=== PATIENT | male | born 1955 | race Caucasian/White ===

== ENCOUNTER 2017-05-30 16:21 | Inpatient (IN) | payer BC ==
[~2017-05-30] VITALS: Ht 188 cm; Wt 139.3 kg
[~2017-05-30 16:21] MED LIST: AMLO10TA2 PO; ASPI-482 PO; BENA10TA2 PO; CHOL10002 PO; KRIL500C PO; METF500T4 PO; MULT-208 PO
[2017-05-30] MEDS ORDERED: NITROGLYCERIN SUBLINGUAL 0.4 MG BOTTLE OF 25. SL PRN ×2 (16:45→19:45)
[2017-05-30 16:46] LABS: BASO # 0.1 x10^3/uL (0.0-0.2); BASO % 1 % (0-3); EOS % 0 % (0-3); HEMATOCRIT 42.1 % (39.0-53.0); HEMOGLOBIN 14.2 g/dL (13.0-17.5); LYMPH % 23 % (24-48); MEAN CORPUSCULAR HEMOGLOBIN 28 pg (25-35); MEAN CORPUSCULAR HGB CONC 34 g/dL (31-37); MEAN CORPUSCULAR VOLUME 84 fL (79-100); MONO % 22 % (0-9); NEUT % 55 % (31-73); PLATELET COUNT 116 x10^3/uL (140-400); RED BLOOD COUNT 5.02 x10^6/uL (4.30-5.70); RED CELL DISTRIBUTION WIDTH 16.4 % (11.5-14.5); WHITE BLOOD COUNT 8.8 x10^3/uL (4.0-11.0)
[2017-05-30 17:06] LABS: CALCIUM 9.3 mg/dL (8.5-10.1); CREATININE 1.4 mg/dL (0.7-1.3); GFR 51.9
[2017-05-30 17:11] LABS: ALBUMIN 4.3 g/dL (3.4-5.0); ALBUMIN/GLOBULIN RATIO 1.3 (1.0-1.7); TOTAL BILIRUBIN 0.6 mg/dL (0.2-1.0); TOTAL PROTEIN 7.7 g/dL (6.4-8.2)
--- NOTE | 2017-05-30 17:14 | ED.ADGEN ---
Past Medical History Past Medical History: Depression, Diabetes-Type II, High Cholesterol, Hypertension Past Surgical History: Tonsillectomy Alcohol Use: None Drug Use: None Adult General Chief Complaint Chief Complaint: CHEST PAIN HPI HPI Patient is a 61 year old man, history of type 2 diabetes mellitus, hypercholesterolemia, hypertension, depression, who presents to the emergency department with a complaint of left chest pain that began around 9:00 this morning. Patient states he had a sharp episode of left upper chest pain, with tingling in both arms, that lasted for about 5 minutes. He states that that chart chest pain did resolve, but he does have some chest tightness that is intermittent since that time. He denies any shortness of breath, any nausea or vomiting, states he's been belching during the day. He states the pain does not really radiate, likely feel some tightness in his left neck. States currently is about a 110 and more tightness than a discomfort. He denies any similar symptoms previously, any injuries, states that he has been experiencing some tightness in his left lower extremity, behind his knee and in his calf, states he plays basket ball several times a week, denies any discrete injuries. No history of DVT or PE, no recent travel or surgery, states he's been compliant with all his medications, he saw his primary care provider about a week ago in his he will A1c was 6.3 at that time, he does not check his sugars regularly although it is recommended. He states he has been compliant with all medications , he takes a baby aspirin daily which she did take this morning. No other medications prior to coming to the ED. He does not have a battery stacker, states he had a cardiac evaluation performed about 2 years ago which showed "some plaque", he has not had a previous catheterization. Review of Systems Review of Systems Constitutional: Denies fever or chills. [] Eyes: Denies change in visual acuity. [] HENT: Denies nasal congestion or sore throat. [] Respiratory: Denies cough or shortness of breath. [] Cardiovascular: Denies chest pain or edema. [] GI: Denies abdominal pain, nausea, vomiting, bloody stools or diarrhea. [] : Denies dysuria. [] Musculoskeletal: Denies back pain or joint pain. [] Integument: Denies rash. [] Neurologic: Denies headache, focal weakness or sensory changes. [] Endocrine: Denies polyuria or polydipsia. [] Lymphatic: Denies swollen glands. [] Psychiatric: Denies depression or anxiety. [] Current Medications Current Medications Current Medications Medications (Trade) Dose Ordered Sig/Efren Start Time Stop Time Status Last Admin Dose Admin Aspirin (Children'S Aspirin) 324 mg 1X ONCE 05/30/17 17:15 05/30/17 17:16 DC 05/30/17 17:35 324 MG Nitroglycerin (Nitrostat) 0.4 mg PRN Q5MIN PRN 05/30/17 16:45 05/31/17 16:44 Allergies Allergies Allergies Coded Allergies Type Severity Reaction Last Updated Verified Penicillins Allergy Intermediate 05/30/17 Yes Physical Exam Physical Exam Constitutional: Well developed, well nourished, no acute distress, non-toxic appearance. [] HENT: Normocephalic, atraumatic, bilateral external ears normal, oropharynx moist, no oral exudates, nose normal. [] Eyes: PERRLA, EOMI, conjunctiva normal, no discharge. [] Neck: Normal range of motion, no tenderness, supple, no stridor. [] Cardiovascular:Heart rate regular rhythm, no murmur, S1, S2, rubs or gallops. Patient with mild anterior chest wall tenderness, no crepitus, no lesions identified. [] Lungs & Thorax: Bilateral breath sounds clear to auscultation, no wheezing, rhonchi, rales. No chest wall crepitus. [] Abdomen: Bowel sounds normal, soft, obese, no rebound, rigidity, no guarding, no tenderness, no masses, no pulsatile masses. [] Skin: Warm, dry, no erythema, no rash. [] Back: No tenderness, no CVA tenderness. [] Extremities: Patient with tenderness palpation in the popliteal fossa and in the calf on the left, no cord noted, no lesions or abnormalities noted superficially, right lower extremity examination is unremarkable, patient does have some darkening of the skin which is chronic, states he previously had cellulitis several years ago,, no cyanosis, no clubbing, ROM intact, no edema. [ ] Neurologic: Alert and oriented X 3, normal motor function, normal sensory function, no focal deficits noted. [] Psychologic: Affect normal, judgement normal, mood normal. [] Current Patient Data Vital Signs Vital Signs Date Time Temp Pulse Resp B/P (MAP) Pulse Ox O2 Delivery O2 Flow Rate FiO2 05/30/17 18:00 74 16 119/63 (81) 96 Room Air 05/30/17 16:25 97.4 97.4 Lab Values Laboratory Tests Test 05/30/17 16:30 White Blood Count 8.8 x10^3/uL (4.0-11.0) Red Blood Count 5.02 x10^6/uL (4.30-5.70) Hemoglobin 14.2 g/dL (13.0-17.5) Hematocrit 42.1 % (39.0-53.0) Mean Corpuscular Volume 84 fL (79-100) Mean Corpuscular Hemoglobin 28 pg (25-35) Mean Corpuscular Hemoglobin Concent 34 g/dL (31-37) Red Cell Distribution Width 16.4 % (11.5-14.5) H Platelet Count 116 x10^3/uL (140-400) L Neutrophils (%) (Auto) 55 % (31-73) Lymphocytes (%) (Auto) 23 % (24-48) L Monocytes (%) (Auto) 22 % (0-9) H Eosinophils (%) (Auto) 0 % (0-3) Basophils (%) (Auto) 1 % (0-3) Neutrophils # (Auto) 4.8 x10^3uL (1.8-7.7) Lymphocytes # (Auto) 2.0 x10^3/uL (1.0-4.8) Monocytes # (Auto) 1.9 x10^3/uL (0.0-1.1) H Eosinophils # (Auto) 0.0 x10^3/uL (0.0-0.7) Basophils # (Auto) 0.1 x10^3/uL (0.0-0.2) Segmented Neutrophils % 48 % (35-66) Band Neutrophils % 9 % (0-9) Lymphocytes % 21 % (24-48) L Monocytes % 18 % (0-10) H Basophils % 2 % (0-3) Metamyelocytes % 2 % (0-0) H Platelet Estimate Decreased (ADEQUATE) Sodium Level 137 mmol/L (136-145) Potassium Level 3.0 mmol/L (3.5-5.1) L Chloride Level 97 mmol/L (98-107) L Carbon Dioxide Level 30 mmol/L (21-32) Anion Gap 10 (6-14) Blood Urea Nitrogen 18 mg/dL (8-26) Creatinine 1.4 mg/dL (0.7-1.3) H Estimated GFR (Cockcroft-Gault) 51.9 BUN/Creatinine Ratio 13 (6-20) Glucose Level 158 mg/dL (70-99) H Calcium Level 9.3 mg/dL (8.5-10.1) Magnesium Level 2.0 mg/dL (1.8-2.4) Total Bilirubin 0.6 mg/dL (0.2-1.0) Aspartate Amino Transferase (AST) 26 U/L (15-37) Alanine Aminotransferase (ALT) 36 U/L (16-63) Alkaline Phosphatase 74 U/L (46-116) Troponin I Quantitative < 0.017 ng/mL (0.000-0.055) FF-Vks-M-Type Natriuretic Peptide 18 pg/mL (0-124) Total Protein 7.7 g/dL (6.4-8.2) Albumin 4.3 g/dL (3.4-5.0) Albumin/Globulin Ratio 1.3 (1.0-1.7) Lipase 208 U/L (73-393) Laboratory Tests 05/30/17 16:30 Laboratory Tests 05/30/17 16:30 EKG EKG EC: Sinus rhythm, 72 beats/minute, left axis deviation, QTC of 411, TX of 180, QRS of 94, no ST elevations or depressions, abnormal ECG, does not meet STEMI criteria. No prior for comparison. As interpreted by me.[] Radiology/Procedures Radiology/Procedures [][facility] [address] [place] [address] IMAGING REPORT Signed PATIENT: PEPPER MCKOY ACCOUNT: [id number] : 1955 LOCATION: ER AGE: 61 SEX: M EXAM STATUS: PRE ER ORD. PHYSICIAN: ALVAREZ PAREKH DO REASON: swelling/pain/TTP PROCEDURE: VENOUS LOWER EXTREMITY LEFT Left lower extremity venous doppler ultrasound Indication: Pain and swelling. . Technique: Color Doppler, grayscale, duplex, spectral waveform analysis is used to evaluate the lower extremity deep venous system, including the common femoral vein, superficial femoral vein, popliteal vein, tibioperoneal trunk and calf veins. Findings: No evidence of deep venous thrombosis. Normal response to augmentation, normal compressibility and normal phasicity is demonstrated. Impression: Negative for deep venous thrombosis Electronically signed by: Amado Warner MD (05/30/2017 5:28 PM) [facility] DICTATED and SIGNED BY: AMADO WARNER MD DATE: 05/30/17 1723 CC: ALVAREZ PAREKH DO; Elvin LALA MD ~ Course & Med Decision Making Course & Med Decision Making Pertinent Labs and Imaging studies reviewed. (See chart for details) Patient is experiencing intermittent "chest tightness", after episode of chest pain associated with belching, and tingling of both arms that occurred this morning. ECG reveals left axis deviation, no other concerning findings identified, and troponin is negative. However, based on patient's report of concern for atypical presentation of ACS, and lack of recent evaluation, he is agreeable for evaluation. Anxiety cardiology consultation. Findings as above were discussed with the patient's primary care provider, Dr. Proctor, 70s service as a full admission to the medical telemetry floor, with consultation placed for Dr. Garrison of cardiology, who did evaluate the patient in the emergency department. Patient remained stable and comfortable during his ED course, transfer to the floor without issue with bridge orders entered per discussion. Dragon Disclaimer Dragon Disclaimer This electronic medical record was generated, in whole or in part, using a voice recognition dictation system. Departure Impression: Primary Impression: Chest pain Disposition: ADMITTED INPATIENT Admitting Physician: Madisyn Proctor Condition: IMPROVED ALVAREZ PAREKH DO May 30, 2017 17:14
[2017-05-30] MEDS ORDERED: ASPIRIN CHEWABLE 81 MG TABLET. PO ONE (17:15)
[2017-05-30 17:22] LABS: % BASOS 2 % (0-3)
[2017-05-30 17:24] LABS: PLT ESTIMATE DECREASED (ADEQUATE)
--- NOTE | 2017-05-30 17:32 | RAD ---
Left lower extremity venous doppler ultrasound Indication: Pain and swelling. . Technique: Color Doppler, grayscale, duplex, spectral waveform analysis is used to evaluate the lower extremity deep venous system, including the common femoral vein, superficial femoral vein, popliteal vein, tibioperoneal trunk and calf veins. Findings: No evidence of deep venous thrombosis. Normal response to augmentation, normal compressibility and normal phasicity is demonstrated. Impression: Negative for deep venous thrombosis Electronically signed by: Amado Warner MD (05/30/2017 5:28 PM) [facility]
--- NOTE | 2017-05-30 17:59 | EKG ---
[facility] [address] [place] [address] Test Date: 2017-05-30 Test Time: 16:25:59 Pat Name: PEPPER MCKOY Department: Room: Gender: M Shorthand Reporter: : 1955 Requested By: ALVAREZ PAREKH Order Number: [id number] Reading MD: Measurements Intervals [place] Rate: 72 P: 38 MD: 180 QRS: -18 QRSD: 94 T: 54 QT: 374 QTc: 411 Interpretive Statements SINUS RHYTHM LEFTWARD AXIS OTHERWISE NORMAL ECG RI6.01 No previous ECG available for comparison
[2017-05-30] MEDS ORDERED: ACETAMINOPHEN 325 MG TABLET. PO PRN (19:45)
[2017-05-30] MEDS ORDERED: ONDANSETRON PF 4 MG/2 ML VIAL. IV PRN (19:45)
[2017-05-30] MEDS ORDERED: DEXTROSE 50% 25 GM / 50ML DISP.SYRIN. IV PRN (19:45)
[2017-05-30] MEDS ORDERED: POTASSIUM CL 40MEQ IN 0.9%NACL 1,000 ML IV ONE (20:30)
[2017-05-30] MEDS ORDERED: POTASSIUM CHLORIDE 20 MEQ/15 ML ORAL LIQUID. PO ONE (20:30)
[2017-05-30] MEDS ORDERED: ATOR20TA58 PO (20:55)
[2017-05-30] MEDS ORDERED: CHLO25TA PO (20:55)
[2017-05-30] MEDS ORDERED: EMPA1TAB3 PO (20:55)
[2017-05-30] MEDS ORDERED: CITA10TA4 PO (20:55)
[2017-05-30] MEDS ORDERED: HYDR25TA PO (20:55)
[2017-05-30] MEDS ORDERED: MONT10TA9 PO (20:55)
[2017-05-30] MEDS ORDERED: GLIM4TAB2 PO (20:55)
[2017-05-30] MEDS ORDERED: TRAZ50TA15 PO (20:55)
[2017-05-30] MEDS ORDERED: LEVO175T5 PO (20:55)
[2017-05-30] MEDS ORDERED: traZODone 50 MG TABLET. PO SCH (22:00)
[2017-05-30] MEDS ORDERED: hydrOXYzine PAMOATE 25 MG CAPSULE PO SCH (22:15)
[2017-05-30] MEDS ORDERED: ATORVASTATIN CALCIUM 20 MG TABLET PO SCH (22:15)
[2017-05-30 23:00] VITALS: BP 115/68
[2017-05-31 03:00] VITALS: BP 122/88
[2017-05-31 05:12] LABS: BASO % 0 % (0-3); EOS % 0 % (0-3); HEMATOCRIT 41.9 % (39.0-53.0); HEMOGLOBIN 13.9 g/dL (13.0-17.5); LYMPH % 26 % (24-48); MEAN CORPUSCULAR HEMOGLOBIN 28 pg (25-35); MEAN CORPUSCULAR HGB CONC 33 g/dL (31-37); MEAN CORPUSCULAR VOLUME 85 fL (79-100); MONO % 24 % (0-9); NEUT % 50 % (31-73); PLATELET COUNT 107 x10^3/uL (140-400); RED BLOOD COUNT 4.91 x10^6/uL (4.30-5.70); RED CELL DISTRIBUTION WIDTH 16.3 % (11.5-14.5); WHITE BLOOD COUNT 7.8 x10^3/uL (4.0-11.0)
[2017-05-31] MEDS ORDERED: LEVOTHYROXINE 175 MCG TABLET PO SCH (06:00)
[2017-05-31 06:15] LABS: CALCIUM 8.8 mg/dL (8.5-10.1); CREATININE 1.2 mg/dL (0.7-1.3); POTASSIUM 3.5 mmol/L (3.5-5.1)
[2017-05-31 07:55] VITALS: BP 124/73
[2017-05-31] MEDS: INSULIN ASPART 300 UNITS/3 ML INSULN.PEN SQ SCH ×3 (08:00→17:00)
[2017-05-31] MEDS ORDERED: GLIMEPIRIDE 2 MG TABLET. PO SCH (08:00)
--- NOTE | 2017-05-31 08:12 | RAD ---
Indication: Chest pain. Time of exam 1724 hours. Correlation is made with prior study from 07/16/2013. The heart size is stable. Lungs are clear. The pulmonary vascularity is normal. No infiltrate, effusion or pneumothorax is seen. Impression: No acute cardiopulmonary process is detected.
--- NOTE | 2017-05-31 08:51 | PDOC ---
Provider Note Provider Note Pt seen and examined, appears to have musculoskeletal cause of chest pain, enzymes negative x 2, K+ was low and has been replaced. Dr. Garrison consulted , stress MPI to be done, if negative anticipate discharge. Risk factors of diabetes, hyperlipidemia and male gender but he is physically active and plays basketball routinely. Full report to be dictated Elvin LALA MD May 31, 2017 08:51
[2017-05-31] MEDS ORDERED: LINAGLIPTIN 5 MG TABLET PO SCH (09:00)
[2017-05-31] MEDS ORDERED: NON FORMULARY ITEM (Empagliflozin/Linagliptin (Glyxambi 10 mg-5 mg Tablet) 1 EACH) PO SCH (09:00)
[2017-05-31] MEDS ORDERED: MULTIVITAMIN with MINERAL TABLET. PO SCH (09:00)
[2017-05-31] MEDS ORDERED: LISINOPRIL 20 MG TABLET PO SCH (09:00)
[2017-05-31] MEDS ORDERED: ASPIRIN ENTERIC COATED 81 MG TABLET.DR. PO SCH (09:00)
[2017-05-31] MEDS ORDERED: amLODIPine BESYLATE 10 MG TABLET PO SCH (09:00)
[2017-05-31] MEDS ORDERED: CHLORTHALIDONE 25 MG TABLET. PO SCH (09:00)
[2017-05-31] MEDS ORDERED: CITALOPRAM 10 MG TABLET. PO SCH (09:00)
--- NOTE | 2017-05-31 11:02 | PDOC2 ---
CONSULT Date of Consult Date of Consult DATE: 05/31/17 TIME: 10:53 Reason for Consult Reason for Consult: Chest Pain Referring Physician Referring Physician: Dr. Enma Kothari MD Identification/Chief Complaint Chief Complaint L Chest pain/tightness Problems: Source Source: Chart review, Patient History of Present Illness Reason for Visit: Mr. Goodwin is a 61 yo male with a medical Hx significant for HTN, CAD, T2DM, and hypercholesterolemia. Patient reports that yesterday morning he started experiencing a sharp pain in his L upper chest, along with tingling down both of his arms. The episode lasted ~5 minutes in total and then resolved on its own. Reports some intermittent tightness since that incident. Denies any SOA, dizziness, weakness, or N/V with this episode. He was concerned about the tightness and drove himself to the ED after work. Denies any history of injury to his chest/neck/arms. Only other symptoms patient reported were frequent belching and leg pain. Patient denies any recent hx of similar episode, however he did state that he had chest tightness a couple of years ago. At that time, he underwent a ECG and stress test which were "normal" per patient. 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 No hx of cardiac catheterizations or other cardiac procedures. Patient takes a baby aspirin daily. In the ED, an ECG was performed and only remarkable for some L axis deviation. No ST elevation or depressions noted. Initial and repeat troponin were both found to be negative. LE US dopplers negative. Today, patient is doing well. He reports minimal L chest "discomfort" that is a 1/10 on a pain scale. Past Medical History Cardiovascular: CAD, HTN, Hyperlipidemia Pulmonary: Other CENTRAL NERVOUS SYSTEM: Other GI: Peptic Ulcer disease Heme/Onc: No pertinent hx Hepatobiliary: No pertinent hx Psych: No pertinent hx Musculoskeletal: Other Rheumatologic: No pertinent hx Infectious disease: No pertinent hx Renal/: No pertinent hx Endocrine: Diabetes, Hypothyroidism Past Surgical History Past Surgical History: Tonsillectomy Family History Family History: Diabetes, Heart Disease, Hypertension, Other Social History ALCOHOL: rare Drugs: None Current Medications Current Medications Current Medications Nitroglycerin (Nitrostat) 0.4 mg PRN Q5MIN PRN SL CP RATING > 1/10; Start 12/4 /17 at 16:45; Stop 05/31/17 at 16:44 Aspirin (Children'S Aspirin) 324 mg 1X ONCE PO Last administered on 05/30/17 17:35; Start 05/30/17 at 17:15; Stop 05/30/17 at 17:16; Status DC Ondansetron HCl (Zofran) 4 mg PRN Q8HRS PRN IV NAUSEA/VOMITING; Start 05/30/17 at 19:45; Stop 05/31/17 at 19:44 Acetaminophen (Tylenol) 650 mg PRN Q4HRS PRN PO FEVER; Start 05/30/17 at 19:45 ; Stop 05/31/17 at 19:44 Nitroglycerin (Nitrostat) 0.4 mg PRN Q5MIN PRN SL CHEST PAIN; Start 05/30/17 at 19:45; Stop 05/31/17 at 19:44 Insulin Aspart (NovoLOG) 0-5 UNITS TIDWMEALS SQ ; Start 05/31/17 at 08:00 Dextrose (Dextrose 50%-Water Syringe) 12.5 gm PRN Q15MIN PRN IV SEE COMMENTS; Start 05/30/17 at 19:45 Potassium Chloride (KCl Oral Soln) 40 meq 1X ONCE PO Last administered on 05/30 22:11; Start 05/30/17 at 20:30; Stop 05/30/17 at 20:31; Status DC Potassium Chloride/Sodium Chloride 1,000 ml @ 75 mls/hr 1X ONCE IV Last administered on 05/30/17 22:08; Start 05/30/17 at 20:30; Stop 05/31/17 at 09:49 ; Status DC Amlodipine Besylate (Norvasc) 10 mg DAILY PO ; Start 05/31/17 at 09:00 Aspirin (Ecotrin) 81 mg DAILY PO ; Start 05/31/17 at 09:00 Atorvastatin Calcium (Lipitor) 20 mg HS PO Last administered on 05/30/17 22:27 ; Start 05/30/17 at 22:15 Chlorthalidone (Thalitone) 25 mg DAILY PO ; Start 05/31/17 at 09:00 Citalopram Hydrobromide (CeleXA) 10 mg DAILY PO ; Start 05/31/17 at 09:00 Levothyroxine Sodium (Synthroid) 175 mcg DAILY06 PO Last administered on 05:47; Start 05/31/17 at 06:00 Metformin HCl (Glucophage) 1,000 mg BIDWMEALS PO ; Start 05/31/17 at 08:00 Montelukast Sodium (Singulair) 10 mg HS PO ; Start 05/31/17 at 21:00 Trazodone HCl (Desyrel) 50 mg PRN QHS PO ; Start 05/30/17 at 22:00 Lisinopril (Prinivil) 20 mg DAILY PO ; Start 05/31/17 at 09:00 Non-Formulary Medication 1 each DAILY PO ; Start 05/31/17 at 09:00; Stop at 09:00; Status DC Glimepiride (Amaryl) 4 mg DAILYWBKFT PO ; Start 05/31/17 at 08:00 Hydroxyzine Pamoate (Vistaril) 25 mg HS PO Last administered on 05/30/17 22:27 ; Start 05/30/17 at 22:15 Multivitamins (Thera M Plus) 1 tab DAILY PO ; Start 05/31/17 at 09:00 Linagliptin (Tradjenta) 5 mg DAILY PO ; Start 05/31/17 at 09:00 Active Scripts Active Reported Hydroxyzine Hcl 25 Mg Tablet 1-2 Tab PO PRN QHS Trazodone Hcl 50 Mg Tablet 1 Tab PO PRN QHS Glimepiride 4 Mg Tablet 1 Tab PO DAILY Atorvastatin Calcium 20 Mg Tablet 1 Tab PO HS Chlorthalidone 25 Mg Tablet 1 Tab PO DAILY Glyxambi 10 mg-5 mg Tablet (Empagliflozin/Linagliptin) 1 Each Tablet 1 Each PO DAILY Montelukast Sodium Tablet (Montelukast Sodium) 10 Mg Tablet 1 Tab PO DAILY Citalopram Hbr (Citalopram Hydrobromide) 10 Mg Tablet 1 Tab PO DAILY Levothyroxine Sodium 175 Mcg Tablet 1 Tab PO DAILY Multi-Day Vitamins (Multivitamin) 1 Each Tablet 1 Each PO DAILY Aspir 81 (Aspirin) 81 Mg Tablet.dr 81 Mg PO DAILY Benazepril Hcl 10 Mg Tablet 20 Mg PO DAILY Amlodipine Besylate 10 Mg Tablet 10 Mg PO DAILY Metformin Hcl 500 Mg Tablet 1,000 Mg PO BID Allergies Allergies: Coded Allergies: Penicillins (Verified Allergy, Intermediate, 12/4/17) ROS Cardiovascular: yes Other (1/10 L chest discomfort) Physical Exam General: Alert, Oriented X3, Cooperative, No acute distress HEENT: PERRLA Lungs: Clear to auscultation, Normal air movement Heart: Regular rate, Normal S1, Normal S2, No murmurs Extremities: No clubbing, No cyanosis, No edema Neuro: Normal speech Psych/Mental Status: Mental status NL, Mood NL Vitals VITALS Vital Signs Date Time Temp Pulse Resp B/P (MAP) Pulse Ox O2 Delivery O2 Flow Rate FiO2 05/31/17 08:00 Room Air 05/31/17 07:55 96.4 64 18 124/73 (90) 96 96.4 05/31/17 03:00 2.0 Labs Labs Laboratory Tests Test 05/30/17 16:30 05/30/17 21:36 05/30/17 21:50 05/31/17 04:15 White Blood Count 8.8 x10^3/uL (4.0-11.0) 7.8 x10^3/uL (4.0-11.0) Red Blood Count 5.02 x10^6/uL (4.30-5.70) 4.91 x10^6/uL (4.30-5.70) Hemoglobin 14.2 g/dL (13.0-17.5) 13.9 g/dL (13.0-17.5) Hematocrit 42.1 % (39.0-53.0) 41.9 % (39.0-53.0) Mean Corpuscular Volume 84 fL (79-100) 85 fL (79-100) Mean Corpuscular Hemoglobin 28 pg (25-35) 28 pg (25-35) Mean Corpuscular Hemoglobin Concent 34 g/dL (31-37) 33 g/dL (31-37) Red Cell Distribution Width 16.4 % (11.5-14.5) 16.3 % (11.5-14.5) Platelet Count 116 x10^3/uL (140-400) 107 x10^3/uL (140-400) Neutrophils (%) (Auto) 55 % (31-73) 50 % (31-73) Lymphocytes (%) (Auto) 23 % (24-48) 26 % (24-48) Monocytes (%) (Auto) 22 % (0-9) 24 % (0-9) Eosinophils (%) (Auto) 0 % (0-3) 0 % (0-3) Basophils (%) (Auto) 1 % (0-3) 0 % (0-3) Neutrophils # (Auto) 4.8 x10^3uL (1.8-7.7) 3.9 x10^3uL (1.8-7.7) Lymphocytes # (Auto) 2.0 x10^3/uL (1.0-4.8) 2.0 x10^3/uL (1.0-4.8) Monocytes # (Auto) 1.9 x10^3/uL (0.0-1.1) 1.8 x10^3/uL (0.0-1.1) Eosinophils # (Auto) 0.0 x10^3/uL (0.0-0.7) 0.0 x10^3/uL (0.0-0.7) Basophils # (Auto) 0.1 x10^3/uL (0.0-0.2) 0.0 x10^3/uL (0.0-0.2) Segmented Neutrophils % 48 % (35-66) Band Neutrophils % 9 % (0-9) Lymphocytes % 21 % (24-48) Monocytes % 18 % (0-10) Basophils % 2 % (0-3) Metamyelocytes % 2 % (0-0) Platelet Estimate Decreased (ADEQUATE) Sodium Level 137 mmol/L (136-145) 140 mmol/L (136-145) Potassium Level 3.0 mmol/L (3.5-5.1) 3.5 mmol/L (3.5-5.1) Chloride Level 97 mmol/L (98-107) 102 mmol/L (98-107) Carbon Dioxide Level 30 mmol/L (21-32) 28 mmol/L (21-32) Anion Gap 10 (6-14) 10 (6-14) Blood Urea Nitrogen 18 mg/dL (8-26) 16 mg/dL (8-26) Creatinine 1.4 mg/dL (0.7-1.3) 1.2 mg/dL (0.7-1.3) Estimated GFR (Cockcroft-Gault) 51.9 62.0 BUN/Creatinine Ratio 13 (6-20) Glucose Level 158 mg/dL (70-99) 128 mg/dL (70-99) Calcium Level 9.3 mg/dL (8.5-10.1) 8.8 mg/dL (8.5-10.1) Magnesium Level 2.0 mg/dL (1.8-2.4) Total Bilirubin 0.6 mg/dL (0.2-1.0) Aspartate Amino Transf (AST/SGOT) 26 U/L (15-37) Alanine Aminotransferase (ALT/SGPT) 36 U/L (16-63) Alkaline Phosphatase 74 U/L (46-116) Troponin I Quantitative < 0.017 ng/mL (0.000-0.055) < 0.017 ng/mL (0.000-0.055) < 0.017 ng/mL (0.000-0.055) HQ-Lby-S-Type Natriuretic Peptide 18 pg/mL (0-124) Total Protein 7.7 g/dL (6.4-8.2) Albumin 4.3 g/dL (3.4-5.0) Albumin/Globulin Ratio 1.3 (1.0-1.7) Lipase 208 U/L (73-393) Glucose (Fingerstick) 179 mg/dL (70-99) Test 05/31/17 07:57 Glucose (Fingerstick) 146 mg/dL (70-99) Laboratory Tests Test 05/30/17 16:30 05/30/17 21:36 05/30/17 21:50 05/31/17 04:15 White Blood Count 8.8 x10^3/uL (4.0-11.0) 7.8 x10^3/uL (4.0-11.0) Red Blood Count 5.02 x10^6/uL (4.30-5.70) 4.91 x10^6/uL (4.30-5.70) Hemoglobin 14.2 g/dL (13.0-17.5) 13.9 g/dL (13.0-17.5) Hematocrit 42.1 % (39.0-53.0) 41.9 % (39.0-53.0) Mean Corpuscular Volume 84 fL (79-100) 85 fL (79-100) Mean Corpuscular Hemoglobin 28 pg (25-35) 28 pg (25-35) Mean Corpuscular Hemoglobin Concent 34 g/dL (31-37) 33 g/dL (31-37) Red Cell Distribution Width 16.4 % (11.5-14.5) 16.3 % (11.5-14.5) Platelet Count 116 x10^3/uL (140-400) 107 x10^3/uL (140-400) Neutrophils (%) (Auto) 55 % (31-73) 50 % (31-73) Lymphocytes (%) (Auto) 23 % (24-48) 26 % (24-48) Monocytes (%) (Auto) 22 % (0-9) 24 % (0-9) Eosinophils (%) (Auto) 0 % (0-3) 0 % (0-3) Basophils (%) (Auto) 1 % (0-3) 0 % (0-3) Neutrophils # (Auto) 4.8 x10^3uL (1.8-7.7) 3.9 x10^3uL (1.8-7.7) Lymphocytes # (Auto) 2.0 x10^3/uL (1.0-4.8) 2.0 x10^3/uL (1.0-4.8) Monocytes # (Auto) 1.9 x10^3/uL (0.0-1.1) 1.8 x10^3/uL (0.0-1.1) Eosinophils # (Auto) 0.0 x10^3/uL (0.0-0.7) 0.0 x10^3/uL (0.0-0.7) Basophils # (Auto) 0.1 x10^3/uL (0.0-0.2) 0.0 x10^3/uL (0.0-0.2) Segmented Neutrophils % 48 % (35-66) Band Neutrophils % 9 % (0-9) Lymphocytes % 21 % (24-48) Monocytes % 18 % (0-10) Basophils % 2 % (0-3) Metamyelocytes % 2 % (0-0) Platelet Estimate Decreased (ADEQUATE) Sodium Level 137 mmol/L (136-145) 140 mmol/L (136-145) Potassium Level 3.0 mmol/L (3.5-5.1) 3.5 mmol/L (3.5-5.1) Chloride Level 97 mmol/L (98-107) 102 mmol/L (98-107) Carbon Dioxide Level 30 mmol/L (21-32) 28 mmol/L (21-32) Anion Gap 10 (6-14) 10 (6-14) Blood Urea Nitrogen 18 mg/dL (8-26) 16 mg/dL (8-26) Creatinine 1.4 mg/dL (0.7-1.3) 1.2 mg/dL (0.7-1.3) Estimated GFR (Cockcroft-Gault) 51.9 62.0 BUN/Creatinine Ratio 13 (6-20) Glucose Level 158 mg/dL (70-99) 128 mg/dL (70-99) Calcium Level 9.3 mg/dL (8.5-10.1) 8.8 mg/dL (8.5-10.1) Magnesium Level 2.0 mg/dL (1.8-2.4) Total Bilirubin 0.6 mg/dL (0.2-1.0) Aspartate Amino Transf (AST/SGOT) 26 U/L (15-37) Alanine Aminotransferase (ALT/SGPT) 36 U/L (16-63) Alkaline Phosphatase 74 U/L (46-116) Troponin I Quantitative < 0.017 ng/mL (0.000-0.055) < 0.017 ng/mL (0.000-0.055) < 0.017 ng/mL (0.000-0.055) FF-Vdi-Q-Type Natriuretic Peptide 18 pg/mL (0-124) Total Protein 7.7 g/dL (6.4-8.2) Albumin 4.3 g/dL (3.4-5.0) Albumin/Globulin Ratio 1.3 (1.0-1.7) Lipase 208 U/L (73-393) Glucose (Fingerstick) 179 mg/dL (70-99) Test 05/31/17 07:57 Glucose (Fingerstick) 146 mg/dL (70-99) Assessment/Plan Assessment/Plan Chest Pain- Negative Troponins, ECG non-concerning. Possible ACS picture vs. chest pain that is musculoskeletal in origin. Will get stress MPI today. Will make additional recommendations based on stress test. If negative, plan to d/c to home. I appreciate the consult and will be happy to follow with this patient throughout the duration of their hospitalization. ILIANA WOLFF MD May 31, 2017 11:02
[2017-05-31 11:05] VITALS: BP 128/75
[2017-05-31] MEDS: metFORMIN 500 MG TABLET PO SCH ×2 (11:08→17:00)
--- NOTE | 2017-05-31 12:00 | RAD ---
APPROVED REPORT Test Type: Exercise Stress Nurse/Tech: Prachi Duarte R.N. Test Indications: c/p Cardiac History: htn,DM Medications: See Electronic Medical Record Medical History: See Electronic Medical Record Resting ECG: SR Resting Heart Rate: 67 bpm Resting Blood Pressure: 128/77mmHg Pretest Chest Pain: No chest pain Nurse/Tech Notes S1S2, lungs CTA Consent: The procedure was explained to the patient in lay terms. Informed consent was witnessed. Alistair leigh was entered into [employer]. History and Stress Test performed by YEISON Carrasco Stress Symptoms dyspnea, lightheadedness at the end of exercise. when pt sat back down after walking on treadmill he noted that he had a tightness in left side of chest scale 2/10. just like he did after he had the sha rp chest pain yesterday POST EXERCISE Reason for Termination: Reached target heart rate Target HR: Yes Max HR: 136 bpm 100% of Maximum Predicted HR: 136 bpm Exercise duration: 7:25 min:sec, 2 Stage Exercise capacity: 7METs Max Blood Pressure: 165/74mmHg Blood Pressure response to exercise: Normal blood pressure response during stress. Heart Rate response to exercise: wnl Chest Pain: Yes. see above note Arrhythmia: No. ST Change: No. INTERPRETATION Stress EKG Conclusion: Baseline EKG showed sinus rhythm. No ischemic changes at peak stress. No arr hythmias. Imaging Protocol IMAGE PROTOCOL: Stress Tc-99m/rest Tc-99m 2 days Rest: Stress: Viability: Radiopharm.Tc99m Sestamibi Dose33.3mCi Duration 10min. Img Date 05/31/2017 Inj-Img [id number]. Stress Admin Site: IV - Left AntecubitalAdministrator: YEISON Carrasco STRESS DATA End Diast. Vol.116.0mlAv. Heart Rate77.0bpm End Syst. Vol.29.0mlCO Index BSA0.0L/min Myocardial Sdjg923.0gEject. Qzupdcvd84.0% Stress Rates Pk. Fill Rate3.45EDV/secLVtime Pk. Fill 225.49msec Pk. Empty Rate4.45ESV/secLVtime Pk. Ghoes356.13msec 1/3 Pk. Fill1.02EDV/sec Stress Scores Regional WT0.00Summed WT2.00 Regional WM0.00Summed WM0.00 LV Perfusion Stress scintigraphic images did not show any significant perfusion defects. Wall Motion Normal left ventricular systolic function with ejection fraction calculated at 75%. LV Perf. Quant 17 Seg. SSS1.00 Stress Defect Extent (% LAD)0.00Rest Defect Extent (% LAD)Rev. Defect Extent (% LAD)0.00 Stress Defect Extent (% LCX) 0.00Rest Defect Extent (% LCX)Rev. Defect Extent (% LCX)0.00 Stress Defect Extent (% RCA)0.00Rest Defect Extent (% RCA)Rev. Defect Extent (% RCA)0.00 Stress Defect Extent (% ELÍAS)0.00Rest Defect Extent (% ELÍAS)Rev. Defect Extent (% ELÍAS)0.00 Conclusion 1. Treadmill exercise cardioisotope stress test did not show any evidence of ischemia or infarct. 2. Normal left ventricular systolic function with ejection fraction calculated at 75%. 3. Low risk for cardiac events.
--- NOTE | 2017-05-31 13:18 | PDOC3 ---
DATE OF ADMISSION Date of Admission 05/30/17 DATE OF DISCHARGE Discharge Date 05/31/17 PROBLEM LIST Problems: (1) Chest pain CONSULTS Consults Dr. Garrison PROCEDURES Procedures stress MPI LABS Labs Laboratory Tests Test 05/30/17 16:30 05/30/17 21:36 05/30/17 21:50 05/31/17 04:15 White Blood Count 8.8 x10^3/uL (4.0-11.0) 7.8 x10^3/uL (4.0-11.0) Red Blood Count 5.02 x10^6/uL (4.30-5.70) 4.91 x10^6/uL (4.30-5.70) Hemoglobin 14.2 g/dL (13.0-17.5) 13.9 g/dL (13.0-17.5) Hematocrit 42.1 % (39.0-53.0) 41.9 % (39.0-53.0) Mean Corpuscular Volume 84 fL (79-100) 85 fL (79-100) Mean Corpuscular Hemoglobin 28 pg (25-35) 28 pg (25-35) Mean Corpuscular Hemoglobin Concent 34 g/dL (31-37) 33 g/dL (31-37) Red Cell Distribution Width 16.4 % (11.5-14.5) 16.3 % (11.5-14.5) Platelet Count 116 x10^3/uL (140-400) 107 x10^3/uL (140-400) Neutrophils (%) (Auto) 55 % (31-73) 50 % (31-73) Lymphocytes (%) (Auto) 23 % (24-48) 26 % (24-48) Monocytes (%) (Auto) 22 % (0-9) 24 % (0-9) Eosinophils (%) (Auto) 0 % (0-3) 0 % (0-3) Basophils (%) (Auto) 1 % (0-3) 0 % (0-3) Neutrophils # (Auto) 4.8 x10^3uL (1.8-7.7) 3.9 x10^3uL (1.8-7.7) Lymphocytes # (Auto) 2.0 x10^3/uL (1.0-4.8) 2.0 x10^3/uL (1.0-4.8) Monocytes # (Auto) 1.9 x10^3/uL (0.0-1.1) 1.8 x10^3/uL (0.0-1.1) Eosinophils # (Auto) 0.0 x10^3/uL (0.0-0.7) 0.0 x10^3/uL (0.0-0.7) Basophils # (Auto) 0.1 x10^3/uL (0.0-0.2) 0.0 x10^3/uL (0.0-0.2) Segmented Neutrophils % 48 % (35-66) Band Neutrophils % 9 % (0-9) Lymphocytes % 21 % (24-48) Monocytes % 18 % (0-10) Basophils % 2 % (0-3) Metamyelocytes % 2 % (0-0) Platelet Estimate Decreased (ADEQUATE) Sodium Level 137 mmol/L (136-145) 140 mmol/L (136-145) Potassium Level 3.0 mmol/L (3.5-5.1) 3.5 mmol/L (3.5-5.1) Chloride Level 97 mmol/L (98-107) 102 mmol/L (98-107) Carbon Dioxide Level 30 mmol/L (21-32) 28 mmol/L (21-32) Anion Gap 10 (6-14) 10 (6-14) Blood Urea Nitrogen 18 mg/dL (8-26) 16 mg/dL (8-26) Creatinine 1.4 mg/dL (0.7-1.3) 1.2 mg/dL (0.7-1.3) Estimated GFR (Cockcroft-Gault) 51.9 62.0 BUN/Creatinine Ratio 13 (6-20) Glucose Level 158 mg/dL (70-99) 128 mg/dL (70-99) Calcium Level 9.3 mg/dL (8.5-10.1) 8.8 mg/dL (8.5-10.1) Magnesium Level 2.0 mg/dL (1.8-2.4) Total Bilirubin 0.6 mg/dL (0.2-1.0) Aspartate Amino Transf (AST/SGOT) 26 U/L (15-37) Alanine Aminotransferase (ALT/SGPT) 36 U/L (16-63) Alkaline Phosphatase 74 U/L (46-116) Troponin I Quantitative < 0.017 ng/mL (0.000-0.055) < 0.017 ng/mL (0.000-0.055) < 0.017 ng/mL (0.000-0.055) NY-Foh-I-Type Natriuretic Peptide 18 pg/mL (0-124) Total Protein 7.7 g/dL (6.4-8.2) Albumin 4.3 g/dL (3.4-5.0) Albumin/Globulin Ratio 1.3 (1.0-1.7) Lipase 208 U/L (73-393) Glucose (Fingerstick) 179 mg/dL (70-99) Test 05/31/17 07:57 05/31/17 11:27 Glucose (Fingerstick) 146 mg/dL (70-99) 210 mg/dL (70-99) MEDICATIONS Medications Medications reviewed and reconciled for discharge. CHEIF COMPLAINT Cheif Complaint left chest wall pain, low potassium PAST MEDICAL HISTORY PMH type 2 diabetes, hyperlipidemia, hypertension, Obesity, EDWIGE, hypothyroidism PAST SURGICAL HISTORY PSH none SOCIAL HISTORY SH , no tobacco or drug use, occasional alcohol FAMILY HISTORY FH both parents of CHF ALLERGIES Allergies Allergies Coded Allergies Type Severity Reaction Last Updated Verified Penicillins Allergy Intermediate 05/30/17 Yes MEDICATIONS Meds Medications reviewed. REVIEW OF SYSTEMS ROS A 14 point ROS was completed with the following noted as positive: Other systems reviewed and negative. PHYSICAL EXAM Subjective sharp chest pain recurrent episodes left chest Objective Gen: NAD HEENT: unremarkable Neck: supple, no thyromegaly Heart: RRR without murmur, rub, normal S1,S2 Lungs: CTAB Abd: soft, non tender, non distended Ext: no C/C/E Skin: no rash, good turgor Vital Signs Vital Signs Date Time Temp Pulse Resp B/P (MAP) Pulse Ox O2 Delivery O2 Flow Rate FiO2 05/31/17 11:10 78 128/75 05/31/17 11:05 96.6 18 94 Room Air 96.6 05/31/17 03:00 2.0 Assessment 1.chest pain - ACS vs musculoskeletal, multiple risk factors with elevated SHITAL score. Admitted with cardiology consult, initial enzymes and EKG unremarkable 2. type 2 diabetes 3. hyperlipidemia 4. hypothyroidism 5. EDWIGE 6. Hypertension 7. hypokalemia [facility] NOTE [facility] Note admitted for serial enzymes, EKG which were unremarkable, potassium was replaced and is now normal, stress MPI done today which is normal and considered low risk and will be discharged on prehospital meds FOLLOW UP F/U 1-2 wks/prn with Dr. Lala DISPOSITION Dispo home Problem Qualifiers (1) Chest pain: Chest pain type: intercostal pain Qualified Codes: R07.82 - Intercostal pain Elvin LALA MD May 31, 2017 13:18
[2017-05-31 14:30] VITALS: BP 116/65
[2017-05-31] MEDS ORDERED: MONTELUKAST SODIUM 10 MG TABLET. PO SCH (21:00)
== END 2017-05-31 17:45 | disposition home or self-care (01) | DRG 313 ==
LOC: ER 16:21 → 5 NORTH 18:16
PROVIDERS: ADMIT Family Medicine; ATTEND Family Medicine
DX: R07.82 Intercostal pain (principal); I25.10 Atherosclerotic heart disease of native coronary artery without angina pectoris; E03.9 Hypothyroidism, unspecified; E11.9 Type 2 diabetes mellitus without complications; E78.00 Pure hypercholesterolemia, unspecified; E78.5 Hyperlipidemia, unspecified; E87.6 Hypokalemia; G47.33 Obstructive sleep apnea (adult) (pediatric); I10 Essential (primary) hypertension; F32.9 Major depressive disorder, single episode, unspecified; E66.9 Obesity, unspecified; Z79.82 Long term (current) use of aspirin; Z87.11 Personal history of peptic ulcer disease; Z68.39 Body mass index [BMI] 39.0-39.9, adult; Z88.0 Allergy status to penicillin; Z82.49 Family history of ischemic heart disease and other diseases of the circulatory system; Z83.3 Family history of diabetes mellitus
CPT/HCPCS: 36415; 71010; 78452; 80048; 80053; 82962; 83690; 83735; 83880; 84484; 85007; 85025; 93005; 93017; 93971; 96374; A9500; J1815; J3480; Q0177; 99285-25

== ENCOUNTER → 2018-01-11 | Outpatient (CLI) | payer BC | END | disposition home or self-care (01) | LOC: KCIC US 07:44 | DX: R16.2 Hepatomegaly with splenomegaly, not elsewhere classified (principal); I10 Essential (primary) hypertension; E11.9 Type 2 diabetes mellitus without complications; E78.5 Hyperlipidemia, unspecified; E78.00 Pure hypercholesterolemia, unspecified; E03.9 Hypothyroidism, unspecified; E66.9 Obesity, unspecified | CPT/HCPCS: 76700 ==

== ENCOUNTER 2018-06-08 08:18 | Outpatient (CLI) | payer BC ==
[2018-06-08] VITALS (10 sets, daily range): BP systolic 113–130; BP diastolic 66–82
[~2018-06-08] VITALS: Ht 182.9 cm; Wt 136.1 kg
[~2018-06-08 08:18] MED LIST changes: -AMLO10TA2 PO; +AMLO10TA6 PO; +ATOR20TA58 PO; -BENA10TA2 PO; +BENA10TA4 PO; +CHLO25TA10 PO; +CITA10TA4 PO; +EMPA1TAB3 PO; +GLIM4TAB2 PO; +HYDR25TA PO; +LEVO175T5 PO; +METF500T16 PO; -METF500T4 PO; +MONT10TA9 PO; +TRAZ-85 PO
[2018-06-08 08:42] LABS: BASO # 0.2 x10^3/uL (0.0-0.2); BASO % 1 % (0-3); EOS % 0 % (0-3); HEMATOCRIT 47.5 % (39.0-53.0); HEMOGLOBIN 16.1 g/dL (13.0-17.5); LYMPH # 2.3 x10^3/uL (1.0-4.8); LYMPH % 13 % (24-48); MEAN CORPUSCULAR HEMOGLOBIN 28 pg (25-35); MEAN CORPUSCULAR HGB CONC 34 g/dL (31-37); MEAN CORPUSCULAR VOLUME 82 fL (79-100); MONO # 3.5 x10^3/uL (0.0-1.1); MONO % 19 % (0-9); NEUT # 12.1 x10^3uL (1.8-7.7); NEUT % 67 % (31-73); PLATELET COUNT 80 x10^3/uL (140-400); RED CELL DISTRIBUTION WIDTH 16.5 % (11.5-14.5); WHITE BLOOD COUNT 18.1 x10^3/uL (4.0-11.0)
[2018-06-08 09:03] LABS: PROTHROMBIN TIME PATIENT 13.3 SEC (11.7-14.0)
[2018-06-08] MEDS ORDERED: LIDOCAINE WITH 8.4% SOD BICARB 3 ML DISP.SYRIN. ONE (09:14)
[2018-06-08] MEDS ORDERED: CHOL500016 PO (09:15)
[2018-06-08] MEDS ORDERED: OMEG-141 PO (09:15)
[2018-06-08] MEDS ORDERED: VITA1CAP7 PO (09:15)
[2018-06-08] MEDS ORDERED: CINN500C2 PO (09:15)
[2018-06-08] MEDS ORDERED: TUMERIC CURCUMIN PO (09:15)
[2018-06-08] MEDS ORDERED: BETA1TAB10 PO (09:15)
[2018-06-08] MEDS ORDERED: TRIA15OI TP (09:15)
[2018-06-08] MEDS ORDERED: LUTE6CAP3 PO (09:15)
[2018-06-08] MEDS ORDERED: MIDAZOLAM HCL/PF 2 MG/2 ML VIAL. ONE (09:25)
[2018-06-08] MEDS ORDERED: fentaNYL PF VIAL 100 MCG/2 ML VIAL ONE (09:26)
[2018-06-08] MEDS ORDERED: fentaNYL PF VIAL 100 MCG/2 ML VIAL IV ONE (10:00)
[2018-06-08] MEDS ORDERED: LIDOCAINE WITH 8.4% SOD BICARB 3 ML DISP.SYRIN. IJ ONE (10:00)
[2018-06-08] MEDS ORDERED: MIDAZOLAM HCL/PF 2 MG/2 ML VIAL. IV ONE (10:00)
[2018-06-08 11:00] LABS: % BANDS 15 % (0-9); % BASOS 1 % (0-3); % LYMPHS 22 % (24-48); % METAS 1 % (0-0); % MONOS 16 % (0-10); % MYELOS 1 % (0-0); % SEGS 44 % (35-66)
[2018-06-08 11:01] LABS: PLT ESTIMATE DECREASED (ADEQUATE)
--- NOTE | 2018-06-08 15:00 | RAD ---
CT-guided bone marrow biopsy. 06/08/2018 2:55 PM Indication: LEUKOCYTOSIS Discussion: The risks and benefits of the procedure, including but not limited to, bleeding and infection were discussed patient. Informed consent was obtained. The patient was brought to the CT scanner and placed in the prone position. A timeout procedure was performed. Senior Digital Designer CT imaging of the pelvis demonstrated left ilium amenable to bone marrow biopsy. The overlying soft tissues were prepped and draped using maximum sterile barrier technique. 1% lidocaine without epinephrine was administered for local anesthesia. Under intermittent CT guidance, an OncControl needle was advanced into the bone marrow of the left iliac crest. 2 Aspirates and 1 core biopsy samples were obtained. Samples were delivered to pathology was present at the time of procedure. The needle was removed and manual pressure held to achieve hemostasis. No immediate complications were identified. The procedure was performed under conscious sedation including continuous cardiopulmonary monitoring via dedicated sedation nurse. Sedation time: 20 minutes Impression: Successful CT-guided bone marrow biopsy of the left iliac crest . PQRS Compliance Statement: One or more of the following individualized dose reduction techniques were utilized for this examination: 1. Automated exposure control 2. Adjustment of the mA and/or kV according to patient size 3. Use of iterative reconstruction technique PQRS Compliance Statement: One or more of the following individualized dose reduction techniques were utilized for this examination: 1. Automated exposure control 2. Adjustment of the mA and/or kV according to patient size 3. Use of iterative reconstruction technique
== END 2018-06-08 11:10 | disposition home or self-care (01) ==
LOC: INTRAD 08:18
PROVIDERS: ATTEND Internal Medicine Hematology & Oncology
DX: D72.829 Elevated white blood cell count, unspecified (principal); Z88.0 Allergy status to penicillin; Z79.899 Other long term (current) drug therapy; Z79.01 Long term (current) use of anticoagulants
CPT/HCPCS: 36415; 38222; 77012; 85025; 85610; 99152; J2250; J3010; 85007

== ENCOUNTER → 2018-06-12 | Outpatient (CLI) | payer BC ==
[2018-06-08 11:00] VITALS: BP 124/73
[~2018-06-12] MED LIST changes: +BETA1TAB10 PO; +CHOL500016 PO; +CINN500C2 PO; +LUTE6CAP3 PO; +OMEG-141 PO; +TRIA15OI TP; +TUMERIC CURCUMIN PO; +VITA1CAP7 PO
--- NOTE | 2018-06-12 10:55 | RAD ---
ABDOMEN COMPLETE History: Leukocytosis Comparison: January 11, 2018 Findings: Multiple sonographic images of the abdomen are submitted. Abdominal aorta, inferior vena cava, and pancreas are obscured by bowel gas. Liver is poorly evaluated also due to bowel gas. Right lobe of the liver is estimated about 21.5 cm longitudinal. There is diffuse coarsening of the echotexture of the liver. Gallbladder is present, internal echogenicity with associated shadowing. There is gallbladder wall thickening about 0.6 cm. Common bile duct is within normal limits about 0.6 cm. Right kidney measured 12.8 x 7.5 x 5.6 cm, no hydronephrosis. Spleen measured up to 14.3 x 6.9 x 5.7 cm. Left kidney measured 14 x 7 x 4.9 cm, no hydronephrosis. Impression: 1. There is cholelithiasis. There is gallbladder wall thickening which may be seen with cholecystitis. 2. There is splenomegaly. There is hepatic steatosis. 3. Midline structures are poorly visualized due to bowel gas. Electronically signed by: Thomas Patel MD (06/12/2018 10:51 AM) [id number]
== END | disposition home or self-care (01) ==
LOC: US 07:08
PROVIDERS: ATTEND Internal Medicine Hematology & Oncology
DX: K80.20 Calculus of gallbladder without cholecystitis without obstruction (principal); K76.0 Fatty (change of) liver, not elsewhere classified; R16.0 Hepatomegaly, not elsewhere classified
CPT/HCPCS: 76700